=== PATIENT | male | born 1965 | race Caucasian/White ===

== ENCOUNTER 2016-06-24 07:38 | Day surgery (SDC) | payer MEDICAID ==
[2016-06-24 07:55] VITALS: BMI 28.6
[2016-06-24] MEDS ORDERED: Midazolam 2 MG/2 ML VIAL ONE (09:39)
[2016-06-24] MEDS ORDERED: Propofol 10 mg/ml Inj (20 ML) ONE ×2 (09:39)
[2016-06-24 13:15] VITALS: BP 131/88; PULSE 85; RESP 16; TEMP 97.9; O2SAT 98
== END 2016-06-24 12:05 | disposition home or self-care (01) ==
LOC: C.ENDO 07:38
PROVIDERS: ATTEND Internal Medicine Gastroenterology
DX: D50.9 Iron deficiency anemia, unspecified (principal); K44.9 Diaphragmatic hernia without obstruction or gangrene; D12.5 Benign neoplasm of sigmoid colon; K64.8 Other hemorrhoids